=== PATIENT | male | born 1965 | race African-American/Black ===

== ENCOUNTER 2016-10-27 06:43 | Emergency (ER) | payer SELFPAY ==
[2016-10-27 07:02] VITALS: TEMP 98.7; BMI 24.3
--- NOTE | 2016-10-27 07:34 | PDOC ---
History of Present Illness <Arslan Zhang - Last Filed: 10/27/16 09:16> - General History Source: Patient Exam Limitations: No Limitations - History of Present Illness Initial Comments: 10/27/16 08:11 The patient is a 51 year old male with a significant past medical history of myocardial bridge, and glaucoma, presenting to the Emergency Department with chest pain, and palpitations. The patient reports that he started experiencing palpitations and chest pain after breakfast this morning. He reports that he has myocardial bridge, which used to be controlled with beta blockers but now is controlled without medication. He reports that his resting heart rate is around 45 and that his heart rate can fluctuate and raise easily, but he has learned how to calm his heart rate down. He admits that he used to experience anxiety attacks, though he does not experience them very often anymore. He states that his symptoms are nearly resolved, and admits that he feels better now in the ER calmed down. He reports that his myocardial bridge was diagnosed in 2007. The patient denies nausea, vomiting, and diarrhea. Patient denies fever, chills , and cough. Patient denies back pain, or neck pain. Patient denies headache, or dizziness. Collection Systems Consultant: Dr. Mcdaniel PCP: Dr. Camacho <Liv Morel - Last Filed: 10/27/16 09:34> - General Chief Complaint: Palpitations Stated Complaint: PALPITATIONS Time Seen by Provider: 10/27/16 07:33 Past History - Psycho/Social/Smoking Cessation Hx Suicidal Ideation: No Smoking History: Never smoked Have you smoked in the past 12 months: No Information on smoking cessation initiated: No Hx Alcohol Use: No Drug/Substance Use Hx: No <Arslan Zhang - Last Filed: 10/27/16 09:16> <Liv Morel - Last Filed: 10/27/16 09:34> - Past Medical History Allergies/Adverse Reactions: Allergies Allergy/AdvReac Type Severity Reaction Status Date / Time amlodipine besylate Allergy Verified 10/27/16 06:59 [From Prestalia] perindopril arginine Allergy Verified 10/27/16 06:59 [From Prestalia] prednisolone Allergy Verified 10/27/16 06:59 Home Medications: Ambulatory Orders Latanoprost 0.005% Eye Drops [Xalatan 0.005% Eye Drops -] 1 drop HS 10/27/16 Review of Systems - Review of Systems Able to Perform ROS?: Yes Comments:: 10/27/16 08:11 GENERAL/CONSTITUTIONAL: No fever or chills. No weakness. HEAD, EYES, EARS, NOSE AND THROAT: No change in vision. No ear pain or discharge. No sore throat. CARDIOVASCULAR: + chest pain and palpitations (resolved). No shortness of breath. RESPIRATORY: No cough, wheezing, or hemoptysis. GASTROINTESTINAL: No nausea, vomiting, diarrhea or constipation. GENITOURINARY: No dysuria, frequency, or change in urination. MUSCULOSKELETAL: No joint or muscle swelling or pain. No neck or back pain. SKIN: No rash NEUROLOGIC: No headache, vertigo, loss of consciousness, or change in strength/ sensation. ENDOCRINE: No increased thirst. No abnormal weight change. HEMATOLOGIC/LYMPHATIC: No anemia, easy bleeding, or history of blood clots. ALLERGIC/IMMUNOLOGIC: No hives or skin allergy. <Liv Morel - Last Filed: 10/27/16 09:34> *Physical Exam - Vital Signs Last Vital Signs Temp Pulse Resp BP Pulse Ox 98.7 F 75 14 135/67 100 10/27/16 07:00 10/27/16 07:00 10/27/16 07:00 10/27/16 07:00 10/27/16 07:00 <Arslan Zhang - Last Filed: 10/27/16 09:16> - Vital Signs Last Vital Signs Temp Pulse Resp BP Pulse Ox 98.7 F 75 14 135/67 100 10/27/16 07:00 10/27/16 07:00 10/27/16 07:00 10/27/16 07:00 10/27/16 07:00 - Physical Exam Comments: 10/27/16 08:12 GENERAL: Awake, alert, and fully oriented, in no acute distress HEAD: No signs of trauma EYES: PERRLA, EOMI, sclera anicteric, conjunctiva clear ENT: Auricles normal inspection, hearing grossly normal, nares patent, oropharynx clear without exudates. Moist mucosa NECK: Normal ROM, supple, no lymphadenopathy, JVD, or masses LUNGS: Breath sounds equal, clear to auscultation bilaterally. No wheezes, and no crackles HEART: Heart rate slow, regular rhythm, normal S1 and S2, no murmurs, rubs or gallops ABDOMEN: Soft, nontender, normoactive bowel sounds. No guarding, no rebound. No masses EXTREMITIES: Normal range of motion, no edema. No clubbing or cyanosis. No cords, erythema, or tenderness NEUROLOGICAL: Cranial nerves II through XII grossly intact. Normal speech, normal gait SKIN: Warm, Dry, normal turgor, no rashes or lesions noted. <Liv Morel - Last Filed: 10/27/16 09:34> Medical Decision Making - Medical Decision Making 10/27/16 09:34 Patient reports that he feels 100% better, and admits he probably should not have come to the ED. He does not want to receive any more tests and wishes to go home. <Liv Morel - Last Filed: 10/27/16 09:34> *DC/Admit/Observation/Transfer - Discharge Dispostion Admit: No - Attestations Physician Attestion: 10/27/16 07:34 I, Dr. Arslan Zhang, attest that this document has been prepared under my direction and personally reviewed by me in its entirety. I further attest, that it accurately reflects all work, treatment, procedures and medical decision -making performed by me. <Arslan Zhang - Last Filed: 10/27/16 09:16> - Attestations Scribe Attestion: 10/27/16 08:12 Documentation prepared by Liv Morel, acting as pediatric medical assistant for Arslan Zhang DO. <Liv Morel - Last Filed: 10/27/16 09:34> Diagnosis at time of Disposition: Myocardial bridge, Rapid heartbeat - Discharge Dispostion Disposition: HOME - Referrals Referrals: Angella Camacho MD [Primary Care Provider] - - Patient Instructions Printed Discharge Instructions: DI for Atypical Chest Pain Additional Instructions: Mr Mansfield- Please come back if your symptoms return... Otherwise follow up with your doctors later this week. Best- Dr. Arslan Zhang
[2016-10-27 09:35] VITALS: BP 136/80; PULSE 66
[2016-10-27 09:40] LABS: BASOPHIL 0.6 % (0-2.0); EOSINOPHIL 0.9 % (0-4.5); MCH 27.3 pg (25.7-33.7); MCHC 32.9 g/dl (32.0-35.9); MEAN CELL VOLUME 82.9 fl (80-96); MEAN PLT VOLUME 7.9 fl (7.5-11.1); NEUTROPHILS 54.6 % (42.8-82.8); PLATELET COUNT 156 K/MM3 (134-434); RDW 13.1 % (11.9-15.9); WHITE BLOOD COUNT 3.7 K/mm3 (4.0-10.0)
[2016-10-27 09:55] LABS: INR 1.08 (0.82-1.09); PROTHROMBIN TIME (PATIENT) 11.9 SEC (9.98-11.88)
[2016-10-27 10:02] LABS: ANION GAP 8 (8-16); CALCIUM 9.2 mg/dL (8.5-10.1); CO2 27 mmol/L (21-32); COCKROFT - GAULT 77.09; CREATININE 1.2 mg/dL (0.7-1.3); GLUCOSE,RANDOM 89 mg/dL (74-106); SGOT/AST 15 U/L (15-37); SGPT/ALT 26 U/L (12-78)
[2016-10-27 10:11] LABS: ALK PHOS 65 U/L (45-117); BILIRUBIN,TOTAL 0.6 mg/dL (0.2-1.0); THYROID STIMULATING HORMONE 1.24 uIU/ml (0.358-3.74); TOT PROT 7.4 g/dl (6.4-8.2); TROPONIN I < 0.02 ng/ml (0.00-0.05)
--- NOTE | 2016-10-28 09:24 | EKG ---
Test Reason : Blood Pressure : / mmHG Vent. Rate : 073 BPM Atrial Rate : 073 BPM P-R Int : 176 ms QRS Dur : 088 ms QT Int : 368 ms P-R-T Axes : 056 -20 -03 degrees QTc Int : 405 ms NORMAL SINUS RHYTHM WITH SINUS ARRHYTHMIA MINIMAL VOLTAGE CRITERIA FOR LVH, MAY BE NORMAL VARIANT NONSPECIFIC T WAVE ABNORMALITY ABNORMAL ECG NO PREVIOUS ECGS AVAILABLE Confirmed by CARIDAD PICKERING, GELY ([id number]) on 10/28/2016 9:23:44 AM Referred By: Confirmed By:GELY MCELAN MD
== END 2016-10-27 09:33 | disposition home or self-care (01) ==
LOC: JER 06:43
DX: R00.0 Tachycardia, unspecified (principal); Q24.5 Malformation of coronary vessels
CPT/HCPCS: 36415; 71010-TC; 80053; 82550; 82553; 84443; 84484; 85025; 85610; 93005; 93010; 99283-25